=== PATIENT | female | born 1985 | race Caucasian/White ===

== ENCOUNTER → 2017-11-25 | Outpatient (CLI) | payer OTHER | END | disposition home or self-care (01) | LOC: MERGE 14:25 → C.PAPS 14:25 | PROVIDERS: ATTEND Obstetrics & Gynecology | DX: Z12.4 Encounter for screening for malignant neoplasm of cervix (principal); Z11.51 Encounter for screening for human papillomavirus (HPV) ==

== ENCOUNTER 2020-01-31 07:37 | Inpatient (IN) ==
[2020-01-31] MEDS ORDERED: OXYTOCIN 30 UNITS/500 ML BAG IV PRN ×3 (08:04→23:25)
[2020-01-31 08:30] LABS: Hematocrit (blood only) 32.6 % (37-47); Hemoglobin 11.2 g/dL (12.0-16.0); Mean Corpuscular Hemoglobin 30.4 pg (25-34); Mean Corpuscular Volume 88.6 fL (80-100); Mean Platelet Volume 10.6 fL (7.4-10.4); Platelet Count 256 K/uL (130-400); RDW Coefficient of Variation 12.8 % (11.5-14.5); RDW Standard Deviation 41.3 fL (36.4-46.3); Red Blood Count 3.68 M/uL (4.2-5.4); White Blood Count 10.31 K/uL (4.8-10.8)
[2020-01-31 08:36] LABS: Mean Corpuscular Hgb Conc 34.4 g/dL (32-36)
[2020-01-31] MEDS: LACTATED RINGER'S 1,000 ML IV PRN ×3 (09:10→16:51)
[2020-01-31] MEDS ORDERED: ePHEDrine sulfate 50 MG/ML AMP ONE (14:27)
[2020-01-31] MEDS ORDERED: fentaNYL citrate 100 MCG/2 ML VIAL ONE (14:27)
[2020-01-31] MEDS ORDERED: BUPIVACAINE 0.25% 30 ML VIAL ONE (14:27)
[2020-01-31] MEDS ORDERED: fentaNYL 2MCG/ML ROPIV 1.25MG/ML 100 ML BAG EPI ONE (14:28)
--- NOTE | 2020-01-31 15:05 | Anesthesiology Consultation ---
Date of Service January 31, 2020 Assessment & Plan Chart Review Chart Review: Acceptable Risk for Surgery, Patient NOT seen in Pre Admission Testing and Acceptable Risk for Labor Epidural Consults Requested none ASA ASA2 Proposed Anesthesia Anesthesia Type: General, Labor Epidural and CSE Risk / Benefits Reviewed With: PT / POA / Parent / Guardian, Accepts Plan and Informed Consent Obtained History Height/Weight Height: 5 ft 11 in Weight: 114.759 kg Allergies Allergy/AdvReac Type Severity Reaction Status Date / Time No Known Drug Allergies Allergy Verified 01/23/20 08:44 Medications Home Medications Medication Instructions Recorded Confirmed Last Taken vit-iron fum-folic ac 1 tab PO DAILY 01/31/20 01/31/20 01/30/20 08:00 [ Vitamin] Active Medications Generic Name Dose Route Start Last Admin Trade Name Freq PRN Reason Stop Dose Admin Lactated Ringer's 1,000 mls @ 125 mls/hr 01/31/20 08:04 01/31/20 14:42 Lr IV 02/02/20 08:03 999 mls/hr .Q8H PRN Administration L&D Protocol Protocol Oxytocin 30 units in 500 mls @ 12 mls/hr 01/31/20 08:44 01/31/20 12:34 Pitocin IV 02/02/20 08:43 0.72 units/hr .Q24H PRN 12 mls/hr Labor Induction/Augmentation Titration Protocol 0.72 UNITS/HR NPO Date Last Intake of Fluids: 01/31/20 Time Last Intake of Fluids: 14:00 Date Last Intake of Solids: 01/31/20 Time Last Intake of Solids: 06:30 Past Medical History Medical History Anxiety Varicella vaccination Exercise / Class Metabolic Activity II 4-5 Yardwork/Stairs/Walk up hill Past Family History Family History Grandfather (Maternal) Diabetes Father Hypertension Past Surgical History Surgical History S/P myringotomy with insertion of tube S/P wisdom tooth extraction Past Anesthesia History No Hx of Anesthesia Complications and No Family Hx of Anesthesia Complications History of PONV No Hx of PONV and No Hx of Motion Sickness Social History Smoking Status: Never smoker Hx Alcohol Use: No Hx Substance Use: No substance use type: does not use Physical Exam Vital Signs Last Vital Signs Temp 36.5 C 01/31/20 13:42 Pulse 90 01/31/20 15:01 Resp 20 01/31/20 13:42 BP 135/92 01/31/20 13:42 Pulse Ox 100 01/31/20 15:01 Constitutional + obese ENMT Mouth: no dentition abnormality Thyromental Distance: > or= 3.5 Finger Breadths Mallampati Class: II Neck normal visual inspection and trachea midline; neck extension not limited Respiratory normal respiratory effort Auscultation: lungs clear to auscultation bilaterally Cardiovascular Rate/Rhythm: regular rate and regular rhythm Heart Sounds: no murmur Vessels: no carotid bruit Musculoskeletal Spine: lumbar spine normal to inspection; normal cervical ROM Extremities: extremities normal to inspection Neurologic moves all extremities Motor/Sensory: no sensory deficit Psychiatric Orientation: alert and oriented x 3 Testing Laboratory Results 01/31/20 08:11
[2020-01-31] MEDS ORDERED: ONDANSETRON INJ 2 MG/ML 2 ML VIAL IV PRN (15:43)
[2020-01-31] MEDS ORDERED: DiphenhydrAMINE HCL 50 MG/ML VIAL IV PRN (15:43)
[2020-01-31] MEDS ORDERED: PROMETHAZINE HCL 25 MG in SODIUM CHLORIDE 0.9% 50 ML IV PRN (15:43)
[2020-01-31] MEDS ORDERED: NALOXONE HCL 1 MG in SODIUM CHLORIDE 0.9% 1000ML 1,000 ML IV PRN (15:43)
[2020-01-31] MEDS ORDERED: NALBUPHINE HCL INJ 10 MG/ML AMP IV PRN (15:43)
[2020-01-31] MEDS ORDERED: fentaNYL 2MCG/ML ROPIV 1.25MG/ML 100 ML BAG EPI PRN (15:43)
[2020-01-31] MEDS ORDERED: NALOXONE HCL 0.4 MG/1 ML VIAL/CARP IV PRN (15:43)
[2020-01-31] MEDS ORDERED: ePHEDrine sulfate 50 MG/ML AMP IV PRN (15:43)
[2020-01-31] MEDS ORDERED: ACETAMINOPHEN 325 MG TAB PO PRN ×2 (18:24→23:25)
--- NOTE | 2020-01-31 19:35 | Obstetrical Progress Note ---
Date of Service now 10cm, will start pushing. She had a few increased BP, but these have resolved January 31, 2020 Results & Data Vital Signs (Past 12 Hours) Vital Signs Temp Pulse Resp BP Pulse Ox 01/31/20 19:33 88 121/65 01/31/20 19:31 86 98 01/31/20 19:26 87 97 01/31/20 19:23 86 128/69 01/31/20 19:21 90 98 01/31/20 19:16 89 98 01/31/20 19:13 88 135/87 01/31/20 19:11 87 97 01/31/20 19:10 97.5 F L 18 01/31/20 19:06 93 H 97 01/31/20 19:04 88 135/86 01/31/20 19:01 90 98 01/31/20 18:56 92 H 99 01/31/20 18:53 92 H 140/90 01/31/20 18:51 94 H 97 01/31/20 18:46 91 H 98 01/31/20 18:43 91 H 145/92 H 01/31/20 18:41 94 H 98 01/31/20 18:36 102 H 98 01/31/20 18:33 98 H 154/90 H 01/31/20 18:31 96 H 98 01/31/20 18:26 96 H 100 01/31/20 18:21 98 H 99 01/31/20 18:20 101 H 165/92 H 01/31/20 18:16 85 99 01/31/20 18:11 87 100 01/31/20 18:06 88 100 01/31/20 18:04 98.4 F 86 18 143/96 H 01/31/20 18:01 84 100 01/31/20 17:56 82 100 01/31/20 17:55 20 01/31/20 17:51 86 140/93 100 01/31/20 17:49 92 H 150/100 H 01/31/20 17:46 86 100 01/31/20 17:44 82 145/95 H 01/31/20 17:41 91 H 100 01/31/20 17:36 79 100 01/31/20 17:34 82 138/92 01/31/20 17:31 82 100 01/31/20 17:26 79 18 98 01/31/20 17:21 77 97 01/31/20 17:19 77 140/84 01/31/20 17:16 79 97 01/31/20 17:11 80 97 01/31/20 17:06 77 97 01/31/20 17:04 79 132/86 01/31/20 17:01 74 96 01/31/20 17:00 18 01/31/20 16:56 77 96 01/31/20 16:51 82 96 01/31/20 16:49 80 138/85 01/31/20 16:46 82 96 01/31/20 16:45 18 01/31/20 16:41 76 95 01/31/20 16:40 18 01/31/20 16:36 79 95 01/31/20 16:34 78 138/87 01/31/20 16:31 77 95 01/31/20 16:26 82 95 01/31/20 16:25 18 01/31/20 16:21 75 96 01/31/20 16:20 76 127/83 01/31/20 16:16 79 96 01/31/20 16:11 78 96 01/31/20 16:10 18 01/31/20 16:06 78 96 01/31/20 16:01 89 97 01/31/20 16:00 79 145/84 H 01/31/20 15:56 82 95 01/31/20 15:55 20 01/31/20 15:54 75 130/79 01/31/20 15:51 80 96 01/31/20 15:48 76 129/86 01/31/20 15:46 79 129/91 97 01/31/20 15:44 77 128/87 01/31/20 15:42 77 130/89 01/31/20 15:41 82 98 01/31/20 15:40 80 20 134/81 01/31/20 15:38 81 134/88 01/31/20 15:36 85 132/91 98 01/31/20 15:34 77 128/86 01/31/20 15:31 83 99 01/31/20 15:26 88 100 01/31/20 15:21 88 99 01/31/20 15:16 87 99 01/31/20 15:11 98 H 100 01/31/20 15:06 95 H 100 01/31/20 15:01 90 100 01/31/20 13:42 97.7 F 78 20 135/92 01/31/20 12:34 81 137/84 01/31/20 11:06 85 139/91 01/31/20 10:26 77 135/88 01/31/20 09:16 81 120/81 01/31/20 07:54 97.9 F 20 01/31/20 07:50 94 H 125/84 PG Care Time/CCT Total # of Minutes Spent Total Time Spent with Patient: Total time spent is greater than 50% in coordination of care (as documented) at patient's floor/unit and/or counseling patient: Coding Level of Care Code None
--- NOTE | 2020-01-31 23:06 | Delivery Summary ---
Vaginal Delivery Summary Date of Service January 31, 2020 Vaginal Delivery Summary Patient had pushed for over 2 hours and hit exhaustion I offered vacuum assistance and the patient agreed discussed of note position was +2 baby was in occiput anterior position bladder was drained with a catheter 200 cc of urine clear was drained vacuum was applied for a total of 4 contractions and 3 pop offs at that stage we made an effort to send that the patient was able to then deliver spontaneously after a few more contractions in occiput anterior position there was some meconium mouth in the nares were suctioned at delivery of the head gentle traction on the baby with no excessive force live vigorous cord clamped and cut cord gases obtained cord blood obtained placenta removed with traction IV Pitocin started there is been a small right medial lateral episiotomy and she had a right sulcal tear the right sulcal tear was repaired first with 3-0 Vicryl and then the right medial lateral episiotomy was repaired with 3-0 Vicryl at this stage hemostasis was excellent rectal exam negative for defects or sutures sponge and instrument counts correct estimated blood loss 400 mL
[2020-01-31 23:17] LABS: Cord Venous Blood HCO3 22 mmol/L (18.4-26.8); Cord Venous Blood PCO2 43 mmHg (30.4-57.2); Cord Venous Blood PO2 31 mmHg (14.1-43.3); Cord Venous Blood pH 7.33 (7.20-7.44)
[2020-01-31 23:18] LABS: Base Excess Cord Arterial Bld -5.1 mEq/L (-9-1.8); CO2 Cord Arterial Blood 61 mmHg (39.1-73.5); HCO3 Cord Arterial Blood 24 mmol/L (19.7-28.5); Oxygen Sat Cord Arterial Blood < 60.0 % (<60); PO2 Cord Arterial Blood 23 mmHg (4.1-31.7); pH Cord Arterial Blood 7.21 (7.1-7.38)
[2020-01-31] MEDS ORDERED: BENZOCAINE 20% AER SPR 82.5 GM CAN EXT PRN (23:25)
[2020-01-31] MEDS ORDERED: bisacodyL 10 MG SUPP PR PRN (23:25)
[2020-01-31] MEDS ORDERED: OXYCODONE/ACETAMINOPHEN 5mg/325mg TAB PO PRN (23:25)
[2020-01-31] MEDS ORDERED: HYDROCORTISONE ACETATE 25 MG SUPP PR PRN (23:25)
[2020-01-31] MEDS ORDERED: SUPERCREAM 0.870% 15 GM JAR EXT PRN (23:25)
[2020-01-31] MEDS ORDERED: DIPHTHERIA/TETANUS/PERTUSSIS 0.5 ML SYR/VIAL IM ONE (23:25)
--- NOTE | 2020-02-01 00:19 | Anesthesia Procedure Note ---
Date of Service February 01, 2020 Anesthesia Post Epidural Note Vital Signs Vital Signs: Temp Pulse Resp BP Pulse Ox 36.5 C 76 18 124/63 98 01/31/20 23:00 02/01/20 00:17 01/31/20 23:00 02/01/20 00:17 01/31/20 23:01 Notes Mental Status: alert / awake / arousable and participated in evaluation Nausea / Vomiting: adequately controlled Pain: adequately controlled Airway Patency, RR, SpO2: stable & adequate BP & HR: stable & adequate Hydration State: stable & adequate Neuraxial Anesthesia: was administered and sensory block is resolving Anesthetic Complications: no major complications apparent and Pt Satisfied with anesthetic care Epidural: Removed without complications and With tip intact Notes: Epidural site clean, dry and intact. No signs of edema, erythema or bruising at insertion site. Pt instructed to request anesthesia if she has residual lower extremity numbness or if she develops lower extremity pain or weakness, back pain or headache.
[2020-02-01] MEDS: IBUPROFEN 600 MG TAB PO PRN ×4 (01:08→18:51)
[2020-02-01 06:18] LABS: Hematocrit (blood only) 29.1 % (37-47); Hemoglobin 9.8 g/dL (12.0-16.0); Mean Corpuscular Hemoglobin 29.9 pg (25-34); Mean Corpuscular Hgb Conc 33.7 g/dL (32-36); Mean Corpuscular Volume 88.7 fL (80-100); Mean Platelet Volume 10.6 fL (7.4-10.4); Platelet Count 279 K/uL (130-400); RDW Coefficient of Variation 12.7 % (11.5-14.5); RDW Standard Deviation 41.2 fL (36.4-46.3); Red Blood Count 3.28 M/uL (4.2-5.4); White Blood Count 17.11 K/uL (4.8-10.8)
[2020-02-01] MEDS: DOCUSATE SODIUM 100 MG CAP PO SCH ×2 (07:51→20:37)
[2020-02-01] MEDS: PRENATAL VITAMIN 1 TAB PO SCH (07:51)
--- NOTE | 2020-02-01 07:56 | Obstetrical Progress Note ---
Date of Service February 01, 2020 Assessment & Plan (1) Post-operative state: Subjective Ambulation: ambulating normally Voiding: no voiding problems Diet Tolerance:: regular diet Lochia:: Moderate Feeding Type:: breast feeding Current Pain Level(1-10): 3 Physical Exam Constitutional WD/WN, vitals as above Gastrointestinal (Abdomen) normal bowel sounds, soft, nontender, no hepatosplenomegaly ext neg Results & Data Vital Signs (Past 12 Hours) Vital Signs Temp Pulse Pulse Resp BP BP Pulse Ox 02/01/20 04:15 97.7 F 79 18 114/77 98 02/01/20 01:25 97.7 F 90 18 134/81 98 02/01/20 01:01 75 125/76 02/01/20 00:47 75 123/70 02/01/20 00:32 80 123/67 02/01/20 00:17 76 124/63 02/01/20 00:09 77 135/62 01/31/20 23:46 88 145/91 H 01/31/20 23:32 87 138/83 01/31/20 23:17 102 H 139/88 01/31/20 23:01 85 135/79 98 01/31/20 23:00 97.7 F 18 01/31/20 22:56 79 96 01/31/20 22:53 78 132/76 01/31/20 22:51 82 96 01/31/20 22:46 79 97 01/31/20 22:43 81 126/76 01/31/20 22:41 84 97 01/31/20 22:36 82 97 01/31/20 22:33 83 130/68 01/31/20 22:31 90 97 01/31/20 22:28 124 H 94 01/31/20 22:26 100 H 99 01/31/20 22:24 86 144/84 H 01/31/20 22:21 81 96 01/31/20 22:16 94 H 95 01/31/20 22:14 88 136/102 H 01/31/20 22:11 91 H 99 01/31/20 22:06 88 100 01/31/20 22:03 82 152/75 H 01/31/20 22:01 82 97 01/31/20 22:00 20 01/31/20 21:56 86 94 01/31/20 21:53 82 128/69 01/31/20 21:51 85 98 01/31/20 21:46 82 98 01/31/20 21:43 82 146/89 H 01/31/20 21:41 82 98 01/31/20 21:36 83 99 01/31/20 21:34 86 142/81 H 01/31/20 21:31 80 98 01/31/20 21:30 18 01/31/20 21:26 84 97 01/31/20 21:23 81 142/83 H 01/31/20 21:21 79 99 01/31/20 21:16 79 96 01/31/20 21:13 85 176/81 H 01/31/20 21:11 82 99 01/31/20 21:06 87 99 01/31/20 21:03 88 116/79 01/31/20 21:01 86 99 01/31/20 21:00 20 01/31/20 20:57 97.7 F 18 01/31/20 20:56 82 97 01/31/20 20:54 84 116/82 01/31/20 20:51 82 98 01/31/20 20:46 88 98 01/31/20 20:41 91 H 99 01/31/20 20:38 87 94 01/31/20 20:36 81 96 01/31/20 20:33 79 134/76 01/31/20 20:32 88 93 01/31/20 20:31 90 98 01/31/20 20:30 18 01/31/20 20:26 82 97 01/31/20 20:23 82 123/75 01/31/20 20:21 84 89 L 01/31/20 20:16 85 95 01/31/20 20:13 85 117/54 L 93 01/31/20 20:11 84 99 01/31/20 20:08 87 92 01/31/20 20:06 88 99 01/31/20 20:04 84 132/70 01/31/20 20:01 87 96 01/31/20 20:00 20 01/31/20 19:59 85 92 01/31/20 19:56 88 99
[2020-02-01] MEDS ORDERED: NON-FORMULARY MEDICATION (Prenatal Vit-Iron Fum-Folic Ac [Prenatal Vitamin] 1 TAB) PO SCH (09:00)
[2020-02-01] MEDS ORDERED: bisacodyL 5 MG TABEC PO SCH (20:00)
[2020-02-02] MEDS: IBUPROFEN 600 MG TAB PO PRN ×3 (04:23→08:28)
[2020-02-02 07:14] LABS: Hematocrit (blood only) 25.9 % (37-47); Hemoglobin 8.8 g/dL (12.0-16.0)
[2020-02-02] MEDS: DOCUSATE SODIUM 100 MG CAP PO SCH (08:27)
[2020-02-02] MEDS: PRENATAL VITAMIN 1 TAB PO SCH (08:27)
--- NOTE | 2020-02-02 09:06 | Obstetrical Progress Note ---
Date of Service February 02, 2020 Assessment & Plan (1) Post-operative state: recovery going well, discharge instructions reviewed. Subjective Ambulation: ambulating normally Voiding: no voiding problems Passing Gas:: Yes Diet Tolerance:: regular diet Lochia:: Small Feeding Type:: breast feeding Physical Exam Constitutional WD/WN, vitals as above Eyes PERRL, conjunctivae normal, anicteric sclerae Neck normal visual inspection Respiratory normal respiratory effort and able to speak in complete sentences; no respiratory distress and no labored breathing Cardiovascular Rate/Rhythm: regular rate and regular rhythm Extremities: no edema Chest (Breasts) Chest: normal inspection of chest Gastrointestinal (Abdomen) Inspection/Auscultation: abdomen normal to inspection Soft, postgravid Psychiatric A+Ox3, euthymic affect Genitourinary OB Exam Abdomen: + fundal height Fundus: + firm and + relation to umbilicus (fundus just below umbilicus); not tender Results & Data Vital Signs (Past 12 Hours) Vital Signs Temp Pulse Resp BP Pulse Ox 02/02/20 08:00 97.7 F 75 18 111/75 98 02/01/20 23:30 98.1 F 85 18 125/80
--- NOTE | 2020-02-05 11:23 | Discharge Summary ---
Date of Service February 05, 2020 Admission Exam (Per Admitting) Constitutional WD/WN, vitals as above Gastrointestinal (Abdomen) normal bowel sounds, soft, nontender, no hepatosplenomegaly Discharge Data Consultations 01/31/20 08:04 Consult Anesthesiology Stat Hospital Course (1) Post-operative state: recovery going well, discharge instructions reviewed. PPD 2 Coding Level of Care Code None Diagnoses Post-operative state Z98.890
== END 2020-02-02 14:28 | disposition home or self-care (01) | DRG 807 ==
LOC: 4S1 07:37 → 4S2 02-01 01:25